=== PATIENT | male | born 1980 | race American Indian/Alaskan Native ===

== ENCOUNTER 2018-02-04 03:30 | Emergency (ER) | payer SELFPAY ==
[2018-02-04 03:41] VITALS: BP 148/90
[2018-02-04] MEDS ORDERED: BENADRYL IV ONE (03:57)
[2018-02-04] MEDS ORDERED: TORADOL IV ONE (03:57)
[2018-02-04] MEDS ORDERED: REGLAN IV ONE (03:57)
--- NOTE | 2018-02-04 04:21 | Cat Scan Report ---
FINAL REPORT PROCEDURE: CT HEAD/BRAIN WO CON TECHNIQUE: Computerized tomography of the head was performed without contrast material. HISTORY: Headache, Hypertension, not on Rx, COMPARISON: No prior studies are available for comparison. FINDINGS: Skull and scalp: Normal. Paranasal sinuses: Normal. Ventricles and subarachnoid spaces: Normal. Cerebrum: No evidence of hemorrhage, acute infarction or mass . Cerebellum and brainstem: No evidence of hemorrhage, acute infarction or mass. Vasculature: Normal. Comments: None. IMPRESSION: There is no evidence of an acute intracranial process.
--- NOTE | 2018-02-04 04:54 | Emergency Department Report ---
ED General Adult HPI - General Chief complaint: High BP Stated complaint: HEADACHE, HIGH BP Time Seen by Provider: 02/04/18 04:47 Source: patient Mode of arrival: Ambulatory Limitations: No Limitations - History of Present Illness Initial comments: Patient is a 37-year-old -Al[place] male who presents for Headache which is unusual for him as frontal radiating to her left eye there is mild photophobia no nausea vomiting symptoms intermittent since 2-3 days ago. p Onset/Timin -: days(s) Location: head Radiation: non-radiation Severity scale (0 -10): 3 Improves with: none Associated Symptoms: cough - Related Data Previous Rx's Medication Instructions Recorded Last Taken Type Acetaminophen [Tylenol] 975 mg PO QID PRN #60 capsule 02/04/18 Unknown Rx Metoclopramide [Reglan] 10 mg PO TID #30 tab 02/04/18 Unknown Rx diphenhydrAMINE [Benadryl CAP] 25 mg PO Q6HR PRN #30 capsule 02/04/18 Unknown Rx Allergies Allergy/AdvReac Type Severity Reaction Status Date / Time gold Au 198 Allergy Unknown Verified 02/04/18 03:42 nickel Allergy Unknown Verified 02/04/18 03:42 quinine Allergy Unknown Verified 02/04/18 03:42 ED Review of Systems ROS: Stated complaint: HEADACHE, HIGH BP Other details as noted in HPI Constitutional: denies: chills, fever Eyes: denies: eye pain, eye discharge, vision change ENT: denies: ear pain, throat pain Respiratory: denies: cough, shortness of breath, wheezing Cardiovascular: denies: chest pain, palpitations Endocrine: no symptoms reported Gastrointestinal: denies: abdominal pain, nausea, diarrhea Genitourinary: denies: urgency, dysuria Musculoskeletal: denies: back pain, joint swelling, arthralgia Skin: denies: rash, lesions Neurological: as per HPI, headache. denies: weakness, numbness, paresthesias, confusion, abnormal gait, vertigo Psychiatric: denies: anxiety, depression Hematological/Lymphatic: denies: easy bleeding, easy bruising ED Past Medical Hx - Past Medical History Previous Medical History?: Yes Additional medical history: Hyperthroid - Surgical History Past Surgical History?: No - Social History Smoking Status: Current Every Day Smoker Substance Use Type: Alcohol - Medications Home Medications: Home Medications Medication Instructions Recorded Confirmed Last Taken Type Acetaminophen [Tylenol] 975 mg PO QID PRN #60 capsule 02/04/18 Unknown Rx Metoclopramide [Reglan] 10 mg PO TID #30 tab 02/04/18 Unknown Rx diphenhydrAMINE [Benadryl CAP] 25 mg PO Q6HR PRN #30 capsule 02/04/18 Unknown Rx ED Physical Exam - General Limitations: No Limitations General appearance: alert - Head Head exam: Present: atraumatic, normocephalic, normal inspection - Eye Eye exam: Present: normal appearance, PERRL, EOMI Pupils: Present: normal accommodation - ENT ENT exam: Present: mucous membranes moist, TM's normal bilaterally. Absent: normal external ear exam - Neck Neck exam: Present: normal inspection, lymphadenopathy, thyromegaly - Respiratory Respiratory exam: Present: normal lung sounds bilaterally. Absent: respiratory distress - Cardiovascular Cardiovascular Exam: Present: regular rate, normal rhythm, normal heart sounds. Absent: systolic murmur, diastolic murmur, rubs, gallop - GI/Abdominal GI/Abdominal exam: Present: soft, normal bowel sounds. Absent: mass, hernia - Rectal Rectal exam: Present: deferred - Extremities Exam Extremities exam: Present: normal inspection, full ROM, calf tenderness. Absent : tenderness, joint swelling - Back Exam Back exam: Present: normal inspection, full ROM. Absent: tenderness, CVA tenderness (R), CVA tenderness (L), muscle spasm, paraspinal tenderness, vertebral tenderness, rash noted - Neurological Exam Neurological exam: Present: alert, oriented X3, CN II-XII intact, normal gait, reflexes normal - Psychiatric Psychiatric exam: Present: normal affect, normal mood - Skin Skin exam: Present: warm, dry, intact, normal color. Absent: rash ED Course Vital Signs 02/04/18 03:35 Temperature 98.7 F Pulse Rate 66 Respiratory 18 Rate Blood Pressure 148/90 O2 Sat by Pulse 97 Oximetry ED Medical Decision Making - Radiology Data Radiology results: report reviewed, image reviewed No evidence of intracranial process - Medical Decision Making Patient currently 3 headache is resolved to 0/10 plan DC home with when necessary Reglan and Benadryl short burst steroid will follow-up with doctor in 2-3 days Critical care attestation.: If time is entered above; I have spent that time in minutes in the direct care of this critically ill patient, excluding procedure time. ED Disposition Clinical Impression: Headache Qualifiers: Headache type: unspecified Headache chronicity pattern: unspecified pattern Intractability: not intractable Qualified Code(s): R51 - Headache Disposition: DC- TO HOME OR SELFCARE Is pt being admited?: No Does the pt Need Aspirin: No Condition: Good Instructions: Acute Headache (ED) Prescriptions: Acetaminophen [Tylenol] 975 mg PO QID PRN #60 capsule PRN Reason: Headache diphenhydrAMINE [Benadryl CAP] 25 mg PO Q6HR PRN #30 capsule PRN Reason: Headache Metoclopramide [Reglan] 10 mg PO TID #30 tab Referrals: PANCHITO SALDAÑA MD [Primary Care Provider] - 3-5 Days Forms: Work/School Release Form(ED) Time of Disposition: 05:11
== END 2018-02-04 05:23 | disposition home or self-care (01) ==
LOC: ED 03:30
DX: R51 Headache (principal); F17.200 Nicotine dependence, unspecified, uncomplicated; E05.90 Thyrotoxicosis, unspecified without thyrotoxic crisis or storm; Z91.048 Other nonmedicinal substance allergy status; Z88.1 Allergy status to other antibiotic agents
CPT/HCPCS: 70450; 96374; 96375; 99283; J1200; J1885; J2765

== ENCOUNTER 2019-07-08 21:31 | Emergency (ER) | payer OTHER ==
[2019-07-08 22:30] VITALS: BP 158/84
--- NOTE | 2019-07-08 22:32 | Emergency Department Report ---
Chief Complaint: High BP Stated Complaint: POSS HIGH BP Time Seen by Provider: 07/08/19 22:09 - HPI History of Present Illness: Patient is a 38-year-old male presents emergency room with complaints of elevated blood pressure for the last couple weeks. He states that 2 weeks ago he was having headache and occasional blurry vision and went to another hospital in [place] and states his blood pressure was 160s over 90s. He denies any symptoms at all currently. He denies any headache, vision changes, chest pain, shortness of breath, numbness, weakness, nausea, vomiting, diarrhea, decreased urination. He states that he saw his primary care physician earlier today and they recommended lifestyle modifications and for him to return for repeat examination. He states he has a past medical history of hyperthyroidism. He denies any allergies to medications. 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 BP is 161/95 in triage repeat BP is 149/70 on exam: Non toxic appearing, no acute distress atraumatic, normocephalic normal appearance of the eyes, PERRL, EOMI, no periorbital edema or ecchymosis moist mucus membranes regular heart rate and rhythm, no gallops, no rubs, no murmurs breath sounds are clear bilaterally, no w/r/r A&O x4, no focal neuro deficit, 5/5 strength in the BUE/BLE, sensation intact throughout, no facial asymmetry, CN II-IX intact, normal gait, no pronator drift skin is warm, dry, intact Discussed in detail with patient lifestyle modifications Discussed to increase his water intake, decrease his sodium intake significantly, weight loss, incorporate daily exercise Advised patient to get a large blood pressure cuff to use at home and to take his blood pressure 3 times a day and keep a blood pressure log Advised for patient to follow back up with his primary care physician Discussed strict return precautions with patient Lifestyle modifications are recommended for this slow increase in his blood pressure and to have serial repeat blood pressures with a primary care physician Patient is asymptomatic at this time Medical screening examination performed and there is no threat to life or limb at this time - Exam Vital Signs: Vital Signs 07/08/19 21:46 Temperature 98.9 F Pulse Rate 95 H Respiratory 18 Rate Blood Pressure 161/95 O2 Sat by Pulse 95 Oximetry MSE screening note: Focused history and physical exam performed. ED Disposition for MSE Clinical Impression: Elevated blood pressure reading Disposition: Z- MED SCREENING EXAM-LEFT Is pt being admited?: No Does the pt Need Aspirin: No Condition: Stable Additional Instructions: Please keep a blood pressure log and take your blood pressure 3 times a day with a large adult cuff. Increase your water intake. Please significantly decrease your sodium intake. Incorporate daily exercise by exercising 30 minutes a day to promote weight loss. Follow-up with your primary care doctor. Return to the emergency room for any new or worsening symptoms including but not limited to numbness, weakness, chest pain, shortness of breath, vision changes, severe headache, etc. Referrals: PRIMARY CARE, [Primary Care Provider] - 2-3 Days Time of Disposition: 22:45 Print Language: MAURITIAN
== END 2019-07-08 22:53 | disposition left against medical advice (07) ==
LOC: ED 21:31
DX: R03.0 Elevated blood-pressure reading, without diagnosis of hypertension (principal); R51 Headache; H53.8 Other visual disturbances
CPT/HCPCS: 99282

== ENCOUNTER 2019-08-26 21:51 | Emergency (ER) | payer OTHER ==
[2019-08-26] MEDS ORDERED: ACETAMINOPHEN 500 MG TAB PO ONE (22:12)
[2019-08-26] MEDS ORDERED: diphenhydrAMINE 25 MG CAP PO ONE (22:12)
[2019-08-26] MEDS ORDERED: hydrALAZINE 25 MG TAB PO ONE (22:12)
--- NOTE | 2019-08-26 22:19 | Emergency Department Report ---
ED General Adult HPI - General Chief complaint: High BP Stated complaint: HEADACHE, ELEVATED BLOOD PRESSURE Time Seen by Provider: 08/26/19 22:11 Source: patient Mode of arrival: Ambulatory Limitations: No Limitations - History of Present Illness Initial comments: Mr. Dyer is a 38 y/o male who presents for elevated bp, state 2/10 frontal headache which is usual symptoms when bp is elevated pt denies dizziness , no lightheadedness no fever or chills, no cp, no sob, no back pain , no n/v, no diaphoresis. Pt is followed by pcp Dr Saldaña and is currently managing bp with life style modyfications and daily monitoring. Pt states his bp was 180/100 today so he came in to ed for medication. This is been an intermittent problem for this patient for past 1 year. He was last seen in this ED for same on 07/08/2019, pt declines labs, cxr, or ekg today. states he had work up with DR Saldaña 2 days ago and is awaiting results. pt does appear well and nontoxic resp are even and nonlobored, he is with nad at this time. Onset/Timin -: year(s) Location: head (frontal ) Radiation: non-radiation Severity scale (0 -10): 2 Quality: aching Consistency: intermittent Improves with: rest Worsens with: none Associated Symptoms: denies: chest pain, cough, fever/chills, malaise, nausea/vomiting, shortness of breath, weakness Treatments Prior to Arrival: none - Related Data Previous Rx's Medication Instructions Recorded Last Taken Type Acetaminophen [Tylenol] 975 mg PO QID PRN #60 capsule 02/04/18 Unknown Rx Metoclopramide [Reglan] 10 mg PO TID #30 tab 02/04/18 Unknown Rx diphenhydrAMINE [Benadryl CAP] 25 mg PO Q6HR PRN #30 capsule 02/04/18 Unknown Rx hydroCHLOROthiazide [HCTZ] 25 mg PO QDAY #30 tablet 08/26/19 Unknown Rx Allergies Allergy/AdvReac Type Severity Reaction Status Date / Time gold Au 198 Allergy Unknown Verified 02/04/18 03:42 nickel Allergy Unknown Verified 02/04/18 03:42 quinine Allergy Unknown Verified 02/04/18 03:42 ED Review of Systems ROS: Stated complaint: HEADACHE, ELEVATED BLOOD PRESSURE Other details as noted in HPI Constitutional: denies: chills, fever Eyes: denies: eye pain, eye discharge, vision change ENT: denies: ear pain, throat pain Respiratory: denies: cough, shortness of breath, wheezing Cardiovascular: denies: chest pain, palpitations Endocrine: no symptoms reported Gastrointestinal: denies: abdominal pain, nausea, vomiting, diarrhea Genitourinary: denies: urgency, dysuria Musculoskeletal: denies: back pain, joint swelling, arthralgia Skin: denies: rash, lesions Neurological: denies: headache, weakness, paresthesias Psychiatric: denies: anxiety, depression Hematological/Lymphatic: denies: easy bleeding, easy bruising ED Past Medical Hx - Past Medical History Previous Medical History?: Yes Additional medical history: Hyperthroid - Surgical History Past Surgical History?: No - Social History Smoking Status: Current Every Day Smoker Substance Use Type: Alcohol - Medications Home Medications: Home Medications Medication Instructions Recorded Confirmed Last Taken Type Acetaminophen [Tylenol] 975 mg PO QID PRN #60 capsule 02/04/18 Unknown Rx Metoclopramide [Reglan] 10 mg PO TID #30 tab 02/04/18 Unknown Rx diphenhydrAMINE [Benadryl CAP] 25 mg PO Q6HR PRN #30 capsule 02/04/18 Unknown Rx hydroCHLOROthiazide [HCTZ] 25 mg PO QDAY #30 tablet 08/26/19 Unknown Rx ED Physical Exam - General Limitations: No Limitations General appearance: alert, in no apparent distress - Head Head exam: Present: atraumatic, normocephalic - Eye Eye exam: Present: normal appearance, PERRL, EOMI Pupils: Present: normal accommodation - ENT ENT exam: Present: normal exam, normal orophraynx, mucous membranes moist, TM's normal bilaterally, normal external ear exam - Neck Neck exam: Present: normal inspection, full ROM. Absent: tenderness - Respiratory Respiratory exam: Present: normal lung sounds bilaterally. Absent: respiratory distress, wheezes, rales, rhonchi, stridor, chest wall tenderness - Cardiovascular Cardiovascular Exam: Present: regular rate, normal rhythm. Absent: systolic murmur, diastolic murmur, rubs, gallop - GI/Abdominal GI/Abdominal exam: Present: soft, normal bowel sounds. Absent: distended, ten derness, bruit, hernia - Rectal Rectal exam: Present: deferred - Extremities Exam Extremities exam: Present: normal inspection, full ROM, normal capillary refill. Absent: tenderness - Back Exam Back exam: Present: normal inspection, full ROM. Absent: tenderness, CVA tenderness (R), CVA tenderness (L), vertebral tenderness - Neurological Exam Neurological exam: Present: alert, oriented X3, CN II-XII intact, normal gait, reflexes normal. Absent: motor sensory deficit - Psychiatric Psychiatric exam: Present: normal affect, normal mood - Skin Skin exam: Present: warm, dry, intact, normal color. Absent: rash ED Course Vital Signs 08/26/19 21:58 Temperature 97.5 F L Pulse Rate 90 Respiratory 16 Rate Blood Pressure 185/100 O2 Sat by Pulse 98 Oximetry ED Medical Decision Making - Medical Decision Making Headache is resolved to 0/10 with medications given in ED. Patient denies symptoms at this time. There is no headache, dizziness, lightheadedness, chest pain, shortness of breath, nausea vomiting, diaphoresis, or back pain. Patient is alert and oriented x3 ambulatory with steady gait with no acute distress. Will DC to home with prescription for hydrochlorothiazide. Patient will follow- up with PCP Dr. Saldaña for further medication management, continue blood pressure log. He will return to ED should symptoms worsen. Critical care attestation.: If time is entered above; I have spent that time in minutes in the direct care of this critically ill patient, excluding procedure time. ED Disposition Clinical Impression: Single episode of hypertension Disposition: DC-01 TO HOME OR SELFCARE Is pt being admited?: No Does the pt Need Aspirin: No Condition: Stable Instructions: Hypertension (ED), DASH Eating Plan (ED) Prescriptions: hydroCHLOROthiazide [HCTZ] 25 mg PO QDAY #30 tablet Referrals: PANCHITO SALDAÑA MD [Staff Physician] - 3-5 Days Forms: Work/School Release Form(ED) Time of Disposition: 22:29
[2019-08-26 23:10] VITALS: BP 175/85
== END 2019-08-26 22:55 | disposition home or self-care (01) ==
LOC: ED 21:51
DX: I10 Essential (primary) hypertension (principal); E05.00 Thyrotoxicosis with diffuse goiter without thyrotoxic crisis or storm; F17.200 Nicotine dependence, unspecified, uncomplicated; Z88.6 Allergy status to analgesic agent; Z91.09 Other allergy status, other than to drugs and biological substances
CPT/HCPCS: 99282